=== PATIENT | female | born 2000 | race African-American/Black ===

== ENCOUNTER 2020-08-04 14:46 | Emergency (ER) | payer OTHER ==
[~2020-08-04] VITALS: Ht 170.2 cm; Wt 78.2 kg
[2020-08-04 17:54] VITALS: BP 115/72
== END 2020-08-04 17:56 | disposition home or self-care (01) ==
LOC: M ED 14:46
DX: F15.251 Other stimulant dependence with stimulant-induced psychotic disorder with hallucinations (principal)

== ENCOUNTER 2021-02-16 19:13 | Emergency (ER) | payer OTHER ==
[~2021-02-16] VITALS: Ht 170.2 cm; Wt 90.6 kg
[2021-02-16 20:38] LABS: APPEARANCE, URINE CLEAR (CLEAR); BACTERIA, URINE AUTO NEGATIVE (NEGATIVE); BILIRUBIN, URINE AUTO NEGATIVE (NEGATIVE); BLOOD, URINE BLOOD 1+ (NEGATIVE); COLOR, URINE STRAW (YELLOW); GLUCOSE, URINE (UA) AUTO NEGATIVE (NEGATIVE); KETONE, URINE AUTO NEGATIVE (NEGATIVE); LEUKOCYTE ESTERASE, URINE AUTO NEGATIVE (NEGATIVE); NITRITE, URINE AUTO NEGATIVE (NEGATIVE); PROTEIN, URINE AUTO NEGATIVE (NEGATIVE); RBC, URINE AUTO 0 /HPF (0-3); SPECIFIC GRAVITY URINE AUTO 1.008 (1.002-1.035); SQUAMOUS EPITHELIAL CELL UR AU 2 /HPF (0-6); UROBILINOGEN, URINE AUTO 0.2 mg/dL (0.0-2.0); WBC, URINE AUTO 0 /HPF (0-3)
[2021-02-16 20:42] LABS: BASO # 0.1 10^3/uL (0.0-0.2); EOS # 0.1 10^3/uL (0.0-0.5); EOS % 0.8 % (0.0-3.0); HEMATOCRIT 38.6 % (36.0-47.0); HEMOGLOBIN 12.6 g/dl (12.0-15.5); LYMPH # 3.5 10^3/uL (1.5-5.0); LYMPH % 42.3 % (24.0-44.0); MEAN CORPUSCULAR HEMOGLOBIN 29.3 pg (27.0-33.0); MEAN CORPUSCULAR HGB CONC 32.6 g/dl (32.0-36.5); MEAN CORPUSCULAR VOLUME 89.8 fl (80.0-96.0); MONO # 0.7 10^3/uL (0.0-0.8); MONO % 8.5 % (2.0-8.0); NEUTROPHILS # 3.9 10^3/uL (1.5-8.5); NEUTROPHILS % 47.2 % (36.0-66.0); PLATELET COUNT, AUTOMATED 220 10^3/uL (150-450); WHITE BLOOD COUNT 8.4 10^3/uL (4.0-10.0)
[2021-02-16 21:01] LABS: BLOOD UREA NITROGEN 15 MG/DL (7-18); CALCIUM LEVEL 8.8 MG/DL (8.5-10.1); CARBON DIOXIDE LEVEL 30 MEQ/L (21-32); CHLORIDE LEVEL 107 MEQ/L (98-107); CREATININE FOR GFR 0.77 MG/DL (0.55-1.30); GLOMERULAR FILTRATION RATE > 60.0 (>60); GLUCOSE, FASTING 85 MG/DL (70-100); POTASSIUM SERUM 4.3 MEQ/L (3.5-5.1); SODIUM LEVEL 141 MEQ/L (136-145)
[2021-02-16 22:06] VITALS: BP 139/80
--- NOTE | 2021-02-16 22:35 | REPVR ---
PROCEDURE INFORMATION: Exam: US Nonobstetric Pelvis; Complete Exam date and time: 02/16/2021 8:57 PM Age: 20 years old Clinical indication: Pelvic pain; Additional info: R/O R ovarian torsion TECHNIQUE: Imaging protocol: Transabdominal pelvic nonobstetric ultrasound. Complete exam. Real time ultrasound with image documentation. COMPARISON: No relevant prior studies available. FINDINGS: Uterus/cervix: The uterus measures 6.5 cm in its cephalocaudad dimension and 2.7 x 5.2 cm in its AP and lateral dimensions. The endometrium measures 5 mm. Right adnexa: Right ovary measures 1.9 x 3.3 x 1.6 cm and demonstrates normal Doppler waveforms. Left adnexa: The left ovary measures 2.5 x 2.7 x 2.1 cm and demonstrates color flow and normal Doppler waveforms. Intraperitoneal space: No intraperitoneal fluid. Urinary bladder: Normal. IMPRESSION: Negative pelvic sonogram. Bilateral ovarian blood flow is noted. No ovarian enlargement. Electronically signed by: Sylvester Dacosta On 02/16/2021 22:35:49 PM
== END 2021-02-16 23:16 | disposition home or self-care (01) ==
LOC: M ED 19:13
DX: N93.9 Abnormal uterine and vaginal bleeding, unspecified (principal)

== ENCOUNTER 2021-07-31 18:35 | Emergency (ER) | payer OTHER ==
[~2021-07-31] VITALS: Ht 172.7 cm; Wt 77.3 kg
[2021-07-31 18:41] VITALS: BP 134/84
== END 2021-07-31 20:10 | disposition left against medical advice (07) ==
LOC: M ED 18:35
DX: Z53.29 Procedure and treatment not carried out because of patient's decision for other reasons (principal)

== ENCOUNTER 2022-03-04 17:31 | Outpatient (CLI) | payer OTHER ==
[~2022-03-04] VITALS: Ht 172.7 cm; Wt 105.8 kg
[2022-03-04] MEDS ORDERED: PRENTAB9 PO (17:59)
[2022-03-04] MEDS ORDERED: HOME MED LIST COMPLETE! XX SCH (18:00)
[2022-03-04 18:02] VITALS: BP 134/78
[2022-03-04] MEDS ORDERED: MULTIVITAMIN -ADULT INJECTION 10 ML, THIAMINE INJection 100 MG, FOLIC ACID 1 MG in NS 1... IV ONE (19:00)
[2022-03-04] MEDS: ONDANSETRON 4MG 2ML VIAL IV PRN ×2 (19:28→23:11)
[2022-03-04 19:39] LABS: HEMATOCRIT 32.6 % (36.0-47.0); HEMOGLOBIN 10.5 g/dl (12.0-15.5); MEAN CORPUSCULAR HEMOGLOBIN 28.6 pg (27.0-33.0); MEAN CORPUSCULAR HGB CONC 32.2 g/dl (32.0-36.5); MEAN CORPUSCULAR VOLUME 88.8 fl (80.0-96.0); PLATELET COUNT, AUTOMATED 163 10^3/uL (150-450); RED BLOOD COUNT 3.67 10^6/uL (4.00-5.40); WHITE BLOOD COUNT 18.4 10^3/uL (4.0-10.0)
[2022-03-04 19:51] VITALS: BP 126/75
[2022-03-04 20:20] LABS: ALBUMIN 2.6 GM/DL (3.2-5.2); ALT/SGPT 14 U/L (12-78); BILIRUBIN,TOTAL 0.2 MG/DL (0.2-1.0); BLOOD UREA NITROGEN 4 MG/DL (7-18); CALCIUM LEVEL 8.6 MG/DL (8.5-10.1); CARBON DIOXIDE LEVEL 21 MEQ/L (21-32); CHLORIDE LEVEL 108 MEQ/L (98-107); CREATININE FOR GFR 0.62 MG/DL (0.55-1.30); GLOMERULAR FILTRATION RATE > 60.0 (>60); GLUCOSE, FASTING 76 MG/DL (70-100); SODIUM LEVEL 139 MEQ/L (136-145); TOTAL PROTEIN 6.1 GM/DL (6.4-8.2)
[2022-03-04] MEDS ORDERED: PIPERACILLIN/TAZOBACTAM SOD 2.25 GM in D5W MINI-BAG PLUS 50 ML IV ONE (21:35)
[2022-03-04 22:18] LABS: APPEARANCE, URINE MANUAL CLEAR (CLEAR); BILIRUBIN, URINE MANUAL NEGATIVE (NEGATIVE); BLOOD URINE MANUAL NEGATIVE (NEGATIVE); COLOR, URINE MANUAL YELLOW (YELLOW); GLUCOSE, URINE (UA) MANUAL NEGATIVE (NEGATIVE); KETONE, URINE MANUAL 2+ mg/dL (NEGATIVE); LEUKOCYTE ESTERASE, URINE MAN NEGATIVE (NEGATIVE); NITRITE, URINE MANUAL NEGATIVE (NEGATIVE); PROTEIN, URINE MANUAL NEGATIVE (NEGATIVE); UROBILINOGEN, URINE MANUAL NORMAL (NORMAL)
[2022-03-04 23:10] VITALS: BP 119/59
[2022-03-04] MEDS: LR 1,000 ML IV PRN (23:39)
[2022-03-04 23:44] LABS: APPEARANCE, URINE MANUAL CLEAR (CLEAR); COLOR, URINE MANUAL YELLOW (YELLOW)
[2022-03-04 23:45] LABS: BILIRUBIN, URINE MANUAL NEGATIVE (NEGATIVE); BLOOD URINE MANUAL NEGATIVE (NEGATIVE); GLUCOSE, URINE (UA) MANUAL NEGATIVE (NEGATIVE); KETONE, URINE MANUAL NEGATIVE (NEGATIVE); LEUKOCYTE ESTERASE, URINE MAN NEGATIVE (NEGATIVE); NITRITE, URINE MANUAL NEGATIVE (NEGATIVE); PH,URINE MAN 6.5 UNITS (5.0 - 7.0); PROTEIN, URINE MANUAL NEGATIVE (NEGATIVE); SPECIFIC GRAVITY,URINE MANUAL 1.005 (1.002-1.035); UROBILINOGEN, URINE MANUAL NORMAL (NORMAL)
[2022-03-04 23:53] VITALS: BP 124/60
== END 2022-03-05 00:07 | disposition home or self-care (01) ==
LOC: M LDO 17:31
PROVIDERS: ATTEND Obstetrics & Gynecology
DX: O21.2 Late vomiting of pregnancy (principal); Z3A.35 35 weeks gestation of pregnancy; Z20.822 Contact with and (suspected) exposure to COVID-19
CPT/HCPCS: 59025; 80053; 81000; 81002; 81015; 85027; 87086; 87486; 87581; 87633; 87798; 96365; 96366; 96367; G0463; J2405; J2543; J3411

== ENCOUNTER 2022-03-24 10:04 | Inpatient (IN) | payer OTHER ==
[~2022-03-24] VITALS: Ht 170.2 cm; Wt 111.2 kg
[2022-03-24] VITALS (29 sets, daily range): BP systolic 119–169; BP diastolic 56–100
[~2022-03-24 10:04] MED LIST: PRENTAB9 PO
[2022-03-24] MEDS ORDERED: HOME MED LIST COMPLETE! XX SCH (10:25)
[2022-03-24] MEDS ORDERED: ACET-907 PO (10:25)
[2022-03-24 10:43] LABS: BASO % 0.3 % (0.0-1.0); EOS # 0.1 10^3/uL (0.0-0.5); EOS % 0.5 % (0.0-3.0); HEMATOCRIT 31.8 % (36.0-47.0); HEMOGLOBIN 10.1 g/dl (12.0-15.5); LYMPH # 2.1 10^3/uL (1.5-5.0); LYMPH % 19.1 % (24.0-44.0); MEAN CORPUSCULAR HEMOGLOBIN 27.8 pg (27.0-33.0); MEAN CORPUSCULAR HGB CONC 31.8 g/dl (32.0-36.5); MEAN CORPUSCULAR VOLUME 87.6 fl (80.0-96.0); MONO # 0.9 10^3/uL (0.0-0.8); MONO % 8.6 % (2.0-8.0); NEUTROPHILS # 7.6 10^3/uL (1.5-8.5); PLATELET COUNT, AUTOMATED 155 10^3/uL (150-450); RED BLOOD COUNT 3.63 10^6/uL (4.00-5.40); WHITE BLOOD COUNT 10.8 10^3/uL (4.0-10.0)
[2022-03-24] MEDS ORDERED: ACETAMINOPHEN 500 MG TAB PO ONE (10:55)
[2022-03-24 11:50] LABS: TOTAL PROTEIN,RANDOM URINE 69.7 MG/DL (0.0-12.0)
[2022-03-24 12:13] LABS: ALT/SGPT 12 U/L (12-78); BILIRUBIN,TOTAL 0.2 MG/DL (0.2-1.0); GLOMERULAR FILTRATION RATE > 60.0 (>60); LDH LACTATE DEHYDROGENASE 146 U/L (84-246); URIC ACID 5.8 MG/DL (2.6-6.0)
[2022-03-24] MEDS ORDERED: PENICILLIN G POTASSIUM 5 MU IV 5 MU in D5W MINI-BAG PLUS 100 ML IV STA (16:03)
[2022-03-24] MEDS ORDERED: TRANEXAMIC ACID INJection 1,000 MG in NS 100 ML IV PRN (16:05)
[2022-03-24] MEDS ORDERED: OXYTOCIN DRIP 30 UNITS in IV 1 EA IV PRN ×4 (16:05)
[2022-03-24] MEDS ORDERED: LR 1,000 ML IV SCH (16:05)
[2022-03-24] MEDS ORDERED: miSOPROStol 50MCG 1/2 TABLET SL ONE (16:05)
[2022-03-24] MEDS ORDERED: LIDOCAINE 1% MDV 20ML VIAL INFIL PRN (16:05)
[2022-03-24] MEDS ORDERED: CARBOPROST TROMETHAMINE 250 MCG/ML AMP IM PRN (16:05)
[2022-03-24] MEDS ORDERED: diphenhydrAMINE 50MG/ML VIAL IV PRN (17:20)
[2022-03-24] MEDS ORDERED: PEN G POT 3,000,000 UNIT/50 ML 3,000,000 UNIT in IV 1 EA IV SCH (20:05)
[2022-03-24] MEDS: miSOPROStol 50MCG 1/2 TABLET PO SCH (20:44)
[2022-03-25] VITALS (23 sets, daily range): BP systolic 103–153; BP diastolic 58–98
[2022-03-25] MEDS: miSOPROStol 50MCG 1/2 TABLET PO SCH ×2 (00:50→05:49)
[2022-03-25] MEDS ORDERED: **PENDING PCN ENTRY XX SCH (09:00)
[2022-03-25] MEDS ORDERED: OXYTOCIN DRIP 30 UNITS in IV 1 EA IV SCH (14:55)
[2022-03-25] MEDS: LR 1,000 ML IV SCH ×2 (15:37→22:05)
[2022-03-25] MEDS ORDERED: PENICILLIN G POTASSIUM 5 MU IV 5 MU in D5W MINI-BAG PLUS 100 ML IV STA (19:13)
[2022-03-25 20:35] LABS: HEMATOCRIT 29.1 % (36.0-47.0); HEMOGLOBIN 9.3 g/dl (12.0-15.5); MEAN CORPUSCULAR HEMOGLOBIN 27.7 pg (27.0-33.0); MEAN CORPUSCULAR VOLUME 86.6 fl (80.0-96.0); PLATELET COUNT, AUTOMATED 146 10^3/uL (150-450); RED BLOOD COUNT 3.36 10^6/uL (4.00-5.40)
[2022-03-25] MEDS ORDERED: NALOXONE INJ 0.4MG/1ML VIAL (J2310 PER 1MG) IV PRN (20:50)
[2022-03-25] MEDS ORDERED: diphenhydrAMINE 50MG/ML VIAL IV PRN (20:50)
[2022-03-25] MEDS ORDERED: EPIDURAL/PCA KEYS XX PRN (20:50)
[2022-03-25] MEDS ORDERED: ePHEDrine SULFATE 25 MG/5 ML(5MG/ML) SYRINGE IVP PRN (20:50)
[2022-03-25] MEDS ORDERED: LR 500 ML IV PRN (20:50)
[2022-03-25] MEDS ORDERED: ONDANSETRON 4MG 2ML VIAL IV PRN (20:50)
[2022-03-25] MEDS: FENTANYL/ROPIVACAINE/NACL BAG 100 ML EPIDURAL SCH (21:47)
[2022-03-25] MEDS: PEN G POT 3,000,000 UNIT/50 ML 3,000,000 UNIT in IV 1 EA IV SCH (22:33)
[2022-03-26] VITALS (19 sets, daily range): BP systolic 116–166; BP diastolic 57–84
[2022-03-26] MEDS: PEN G POT 3,000,000 UNIT/50 ML 3,000,000 UNIT in IV 1 EA IV SCH ×2 (02:58→07:04)
[2022-03-26] MEDS: FENTANYL/ROPIVACAINE/NACL BAG 100 ML EPIDURAL SCH (04:40)
[2022-03-26] MEDS: LR 1,000 ML IV SCH (11:01)
[2022-03-26 11:54] LABS: CORD GAS HCO3 V 17.7 MEQ/L; CORD GAS O2 SAT V 95.1 %; CORD GAS PCO2 V 31.4 mmHg; CORD GAS PH V 7.37 UNITS; CORD GAS PO2 V 53.6 mmHg; CORD GAS SBC V 19.6 MEQ/L; CORD GAS TCO2 V 18.7 MEQ/L
[2022-03-26 11:55] LABS: CORD GAS ABE A -16.2; CORD GAS HCO3 A 15.4 MEQ/L; CORD GAS O2 SAT A 45.1 %; CORD GAS PH A 7.028 UNITS; CORD GAS SBC A 11.7 MEQ/L; CORD GAS TCO2 A 17.3 MEQ/L
[2022-03-26] MEDS ORDERED: METHYLERGONOVINE MALEATE 0.2 MG TAB PO PRN (12:30)
[2022-03-26] MEDS ORDERED: RHOGAM 300 MCG (1500 IU) INJ (J2790) IM SCH (12:30)
[2022-03-26] MEDS ORDERED: IBUPROFEN 800 MG TAB PO PRN (12:30)
[2022-03-26] MEDS ORDERED: DOCUSATE SODIUM 100MG CAPSULE PO PRN (12:30)
[2022-03-26] MEDS ORDERED: DIBUCAINE 1% OINTMENT 30GM TOP PRN (12:30)
[2022-03-26] MEDS ORDERED: ACETAMINOPHEN TAB 650MG DOSE (2X325MG) PO PRN (12:30)
[2022-03-26] MEDS: PRENATAL VITAMINS CHEWABLE TABLET PO SCH (17:02)
[2022-03-27 06:00] VITALS: BP 132/83
[2022-03-27] MEDS: PRENATAL VITAMINS CHEWABLE TABLET PO SCH (09:09)
[2022-03-28] MEDS ORDERED: MEASLES,MUMPS,RUBELLA VACCINE INJ (MMR-II) (90707) SC.IMMUN ONE (09:00)
== END 2022-03-27 10:15 | disposition home or self-care (01) | DRG 807 ==
LOC: M LDO 10:04 → M LDI 15:59 → M OBS 03-26 16:08
PROVIDERS: ADMIT Advanced Practice Midwife; ATTEND Registered Nurse
PROC: 3E0P7GC Introduction of Other Therapeutic Substance into Female Reproductive, Via Natural or Artificial Opening (ICD-10-PCS; 2022-03-24)
PROC: 10907ZC Drainage of Amniotic Fluid, Therapeutic from Products of Conception, Via Natural or Artificial Opening (ICD-10-PCS; 2022-03-25)
PROC: 10E0XZZ Delivery of Products of Conception, External Approach (ICD-10-PCS; principal; 2022-03-26)
PROC: 0KQM0ZZ Repair Perineum Muscle, Open Approach (ICD-10-PCS; 2022-03-26)
DX: O14.04 Mild to moderate pre-eclampsia, complicating childbirth (principal); Z37.0 Single live birth; Z3A.37 37 weeks gestation of pregnancy; O99.824 Streptococcus B carrier state complicating childbirth; O76 Abnormality in fetal heart rate and rhythm complicating labor and delivery; O69.1XX0 Labor and delivery complicated by cord around neck, with compression, not applicable or unspecified; O70.1 Second degree perineal laceration during delivery